=== PATIENT | male | born 1975 | race Caucasian/White ===

== ENCOUNTER → 2017-02-16 | Emergency (ER) | payer OTHER ==
--- NOTE | 2017-02-16 17:39 | PDOC ---
History of Present Illness - General Chief Complaint: Cardiac Arrest Stated Complaint: POSSIBLE OVERDOSE Time Seen by Provider: 02/16/17 17:33 History Source: EMS - History of Present Illness Initial Comments: 02/16/17 17:34 I saw this patient immediately upon arrival to the ER. This is a 41 yo M no significant past medical history, h/o drug use who presents to the ER s/p being found down in the bathroom Pt found in the bathroom by EMS called EMS arrived at approximately 4:50pm Initial rhythm asystole CPR started immediately In total, Epinephrine administered x 8 Sodium Bicarbonate x 1 Narcan 6mg given They were unable to intubate as pt jaw was rigid and locked They were able to place a nasal airway Pt transported to the ER Initial rhythm in the ER Asystole Chest compressions resumed via CARA machine Pt given Epinephrine x 1, Remains Asystolic Bedside ECHO performed, no cardiac activity Time of : 5:31pm GENERAL: The patient's jaw is locked HEAD: Normal with no signs of trauma. EYES: pupils 5mm bilaterally and fixed NECK: supple, trachea midline, no bruising noted LUNGS: BVM with faint breath sounds HEART: No cardiac activity ABDOMEN: Soft, nondistended EXTREMITIES: No edema, no erythema, no deformities, finger nail beds dusky NEUROLOGICAL: no spontaneous activity or motion. SKIN: Cool, no rashes or lesions noted, several tattoos 02/16/17 18:20 Past History - Past Medical History Allergies/Adverse Reactions: Allergies Allergy/AdvReac Type Severity Reaction Status Date / Time No Known Allergies Allergy Verified 02/16/17 17:37 Home Medications: Ambulatory Orders Azithromycin [Zithromax Z-BRISA (5 DAYS) -] 250 mg PO ASDIR #6 tablet 11/11/14 Guaifenesin/Dextromethorphan [Tussin Dm Clear] 240 ml PO TID #150 syrup Ibuprofen [Motrin -] 800 mg PO TID #30 tablet 11/11/14 Cephalexin [Keflex] 250 mg PO QID #20 capsule 11/27/15 - Immunization History Immunization Up to Date: Yes - Psycho/Social/Smoking Cessation Hx Anxiety: No Suicidal Ideation: No Smoking History: Current every day smoker Have you smoked in the past 12 months: Yes Number of Cigarettes Smoked Daily: 3 Hx Alcohol Use: No Drug/Substance Use Hx: No Substance Use Type: None Medical Decision Making - Critical Care Time Total Critical Care Time (minutes): 35 Critical Care Statement: The care of this patient involved high complexity decision making to prevent further life threatening deterioration of the patient 's condition and/or to evalute & treat vital organ system(s) failure or risk of failure. - Medical Decision Making 02/16/17 17:39 MDM: Family member (Americo Raymond, ) contacted, events reviewed Support offered Additional history obtained pt was at work, driving [employer] He went home apparently, parked work van at home Apparently went home where he was ultimately found in the bathroom, unresponsive 02/16/17 17:57 Call placed to medical laboratory technician No response, voicemail left 02/16/17 18:50 Wifs still has not come to the ER 2nd voicemail left for ME 02/16/17 19:07 02/16/17 19:09 coat examiner contacted Case accepted Investigator Grant 02/16/17 19:17 Pt present in the ER I have reviewed pt presentation to the ER with her I have answered all questions pt in agreement with autopsy *DC/Admit/Observation/Transfer Diagnosis at time of Disposition: Cardiac arrest - Discharge Dispostion Disposition:
[2017-02-16 17:40] VITALS: BP 0/0; BMI 41.8
== END | disposition expired ==
LOC: JER 17:27
PROC: 5A02216 Assistance with Cardiac Output using Other Pump, Continuous (ICD-10-PCS; principal; 2017-02-16)
DX: I46.9 Cardiac arrest, cause unspecified (principal); F17.210 Nicotine dependence, cigarettes, uncomplicated
CPT/HCPCS: 92950; 99282-25